=== PATIENT | female | born 2000 | race Caucasian/White ===

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

== ENCOUNTER → 2019-03-27 16:39 | Observation (INO) ==
--- NOTE | 2019-03-27 16:30 | Discharge Summary ---
Date of Encounter: 03/27/19 Time of Encounter: 16:29 - Discharge Diagnosis (1) 38 weeks gestation of Priority: Primary Status: Acute Comments: Admit to observation for patient complaint of possible SROM (2) NST (non-stress test) reactive Priority: Secondary Status: Acute Comments: FHR 145 bpm, moderate variability, +15x15 accels, no decels. (3) False labor Priority: Secondary Status: Acute Comments: Patient without cervical change since appointment early this AM FERN negative Vaginosis panel pending (4) Vaginal discharge during in third trimester Priority: Secondary Status: Acute Comments: Vaginosis panel collected and pending at time of note. FERN and nitrazine negative - Discharge Medications Prescriptions: No Action Pnv Cmb#21/Iron/Folic Acid [ Complete Caplet] 1 each PO DAILY Home Medications: Pnv Cmb#21/Iron/Folic Acid [ Complete Caplet] 1 each PO DAILY 03/27/19 [History] Allergies/Adverse Reactions: Allergy/AdvReac Type Severity Reaction Status Date / Time sulfamethoxazole Allergy Seizure Verified 03/27/19 15:34 [From Bactrim] trimethoprim [From Bactrim] Allergy Seizure Verified 03/27/19 15:34 Date of admission: 03/27/19 15:13 Primary care physician: PCP NONE Discharging clinician: Lanette Waldrop Anticipated date of discharge: 03/27/19 - Patient Status Disposition: Home, Self-Care Condition: Good Functional capacity at discharge: independent ambulation Overall status at discharge: patient is progressing back to baseline - Discharge Instructions Follow Up With: NONE,PCP [Primary Care Provider] - Wendie Cotto MD [Partnered Physician] - - Diet and Activity Activity: resume usual activities as tolerated Diet: regular diet 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 On further questioning, she states that she has been leaking fluid since Monday. She reports positive movement and denies vaginal bleeding. Nitrazine and FERN were both negative, no obvious fluid visualized in vaginal vault. Small amount of adherent white discharge on vaginal miranda so vaginosis panel collected and sent to lab. Cervix without change at FT/thick/high and posterior. Patient is to follow up with her OB care provider as scheduled next week on 9/20/19. Time Attestation: Total time spent providing and/or coordinating discharge services: Time Spent: Less than 30 minutes Exam - Constitutional General appearance IM: A&O X 3, pleasant, no acute distress, answers questions appropriately - Respiratory Respiratory exam: Present: CTAB. Absent: respiratory distress - Cardiovascular Cardiovascular exam IM: Present: RRR, +S1, +S2. Absent: irregular rhythm - GI/Abdominal GI/Abdominal exam IM: normal bowel sounds, soft - Rectal Rectal exam: deferred - External exam: normal external exam - Extremities Exam Extremities exam IM: Present: full ROM, normal capillary refill, normal inspection. Absent: calf tenderness - Neurological Exam Neurological exam: alert, normal gait, oriented X3 - VTE Reasons for not Prescribing Prophylaxis: Treatment not Indicated - Low risk for VTE
[~2019-03-27 16:39] MED LIST: FLU Vac QV 19-20 (6Month+)/PF 0.5 ML SYRINGE IM ONE
[2019-03-27 17:16] LABS: Amphetamine Screen,Urine Negative ng/mL (Cutoff=1000); Barbiturate Screen,Urine Negative ng/mL (Cutoff=200); Benzodiazepines Screen,Urine Negative ng/mL (Cutoff=200); Cannabinoid Screen,Urine Negative ng/mL (Cutoff = 50); Cocaine Screen,Urine Negative ng/mL (Cutoff= 300); Opiate Screen,Urine Negative ng/mL (Cutoff=300); Phencyclidine Screen,Urine Negative ng/mL (Cutoff=25)
[2019-03-27 17:57] LABS: Candida DNA Not Detected (Not Detect); Gardnerella DNA Not Detected (Not Detect); Trichomonas DNA Not Detected (Not Detect)
== END | disposition home or self-care (01) ==
LOC: 1NENULAB
PROVIDERS: ADMIT Registered Nurse; ATTEND Registered Nurse

== ENCOUNTER 2019-04-11 08:00 | Inpatient (IN) ==
[2019-04-11] MEDS ORDERED: Naloxone 0.4 MG/ML INJ IVP PRN (08:27)
[2019-04-11] MEDS ORDERED: Ondansetron 4 MG/2 ML VIAL IVP PRN (08:27)
[2019-04-11] MEDS ORDERED: Famotidine 20 MG/2 ML VIAL IVP PRN (08:27)
[2019-04-11] MEDS ORDERED: Metoclopramide 10 MG/2 ML VIAL IVP PRN (08:27)
[2019-04-11] MEDS ORDERED: Lidocaine 1% 20 ML MDV ID PRN (08:27)
[2019-04-11] MEDS ORDERED: *HR* Nalbuphine 10 MG/ML AMPUL IVP PRN (08:27)
[2019-04-11] MEDS ORDERED: D5% in Lactated Ringers 1,000 ML IVC SCH (08:30)
[2019-04-11] MEDS ORDERED: Ringers Solution, Lactated 1,000 ML IVC SCH (08:30)
[2019-04-11] MEDS ORDERED: Methylergonovine 0.2 MG/ML AMPUL IM ONE (08:55)
[2019-04-11 09:08] LABS: Basophils % 0.3 %; Eosinophils # 0.1 K/mcL (0.0-0.6); Eosinophils % 1.6 %; Hematocrit 36.4 % (35.3-44.9); Hemoglobin 12.1 g/dL (11.5-15.4); Immature Granulocytes % 1.3 % (0-4); Lymphocytes # 1.8 K/mcL (0.6-4.6); Lymphocytes % 23.4 %; Mean Corpuscular HGB Conc 33.2 g/dL (31.6-35.5); Mean Corpuscular Hemoglobin 31.4 pg (28.0-33.3); Mean Corpuscular Volume 94.5 fL (83.0-100.0); Mean Platelet Volume 9.4 fL (9.4-12.4); Monocytes # 0.6 K/mcL (0.0-1.3); Monocytes % 7.6 %; Platelet Count 236 K/mcL (140-400); Red Blood Count 3.85 M/mcL (3.82-4.97); Red Cell Distribution Width 13.6 % (11.5-14.5); Segmented Neutrophils % 65.8 %; White Blood Count 7.7 K/mcL (4.3-11.1)
[2019-04-11] MEDS ORDERED: miSOPROStol 25 MCG TABLET VG PRN (09:29)
[2019-04-11 09:49] LABS: Amphetamine Screen,Urine Negative ng/mL (Cutoff=1000); Barbiturate Screen,Urine Negative ng/mL (Cutoff=200); Benzodiazepines Screen,Urine Negative ng/mL (Cutoff=200); Cannabinoid Screen,Urine Negative ng/mL (Cutoff = 50); Cocaine Screen,Urine Negative ng/mL (Cutoff= 300); Opiate Screen,Urine Negative ng/mL (Cutoff=300); Phencyclidine Screen,Urine Negative ng/mL (Cutoff=25)
--- NOTE | 2019-04-11 11:09 | OB Labor Progress Note ---
Date of Encounter: 04/11/19 Time of Encounter: 11:06 Labor Progress Note - Subjective Subjective: not feeling contractions - Cervix Cervix: 1/75/-2 - Heart Tones Heart Tones: 135/moderate/+accels/-decels - Loyalhanna Loyalhanna: 6-9 - Interventions Interventions: 60cc cervical yuan and cytotec placed - Plan Plan: frequent repostioning nubain and epidural as desired
[2019-04-11] MEDS ORDERED: Penicillin G Potassium 5,000,000 UNIT in 0.9 % Sodium Chloride Mini Bag 100 ML IVPB ONE (11:19)
--- NOTE | 2019-04-11 12:23 | Anesthesia Evaluation PreOp ---
Date of Encounter: 04/11/19 Time of Encounter: 12:17 - Past History Planned Operation: branden Cardiac History: Denies any Significant Hx Pulmonary History: Denies Any Significant HX SEATING CAPTAIN History: Denies Any Significant HX Other Medical History: Denies Any Significant HX Anesthesia History: No Prior Anesthetic Complications, Past Anesthesia : Yes (40weeks, G1) Alcohol Use: none Drug use: none Medications and Allergies Pnv Cmb#21/Iron/Folic Acid [ Complete Caplet] 1 each PO DAILY 03/27/19 [History] Allergy/AdvReac Type Severity Reaction Status Date / Time sulfamethoxazole Allergy Seizure Verified 03/27/19 15:34 [From Bactrim] trimethoprim [From Bactrim] Allergy Seizure Verified 03/27/19 15:34 - Meds/Allergy Pre-op Review Medications Reviewed: Yes Allergies Reviewed: Yes Beta Blockers on Current Med List: No Anesthesia Results - Labs 04/11/19 08:20 Anesthesia Exam O2 Sat Height 1.55 m Height 1.55 m Weight 69.354 kg Weight 69.5 kg Height: 61 Weight: 69 - HEENT Pupil (Motor): Pupils equal Mallampati: II Teeth: Normal Oral Opening: Greater than 3 - SEATING CAPTAIN LOC: Oriented SEATING CAPTAIN Motor: Normal RUE, Normal LUE, Normal RLE, Normal LLE, Normal Face SEATING CAPTAIN Sensory: Normal: RUE, LUE, RLE, LLE, Face - Cardiac Rhythm: Regular Murmur: None JVD: No Carotid Bruit: No - Pulmonary Breath Sounds: bilateral Clear Respiratory Effort: Symmetrical Anesthesia Assess/Plan ASA Score: 2 Level of consciousness: Cooperative Anesthetic Plan: Epidural Monitoring Plan: Standard Monitors
[2019-04-11] MEDS ORDERED: EPHEDrine 50 MG/ML VIAL IVP PRN (12:25)
[2019-04-11] MEDS ORDERED: Epidural Premix (fent/bupiv) 110 ML EP SCH (12:30)
--- NOTE | 2019-04-11 12:49 | OB/GYN History & Physical ---
Date of Encounter: 04/11/19 Time of Encounter: 12:46 Assessment and Plan (1) 40 weeks gestation of Current visit: Yes Status: Acute History of Present Illness Chief complaint: induction HPI: Ms. Jacinto is a 19 year old female 1 at 40 weeks and 2 days, scheduled for induction of labor. On exam her cervix is 1 cm a 60 mL Maguire was placed she has allergies to sulfa, Bactrim and trimethoprim. Current medications include vitamins. She has no chronic medical conditions. Surgical history is significant for excision of vulvar lesion 2. She has no history of abnormal Pap smears, STDs or pelvic infections. Socially she denies tobacco, alcohol, illicit drug use. Family history significant for hypertension, heart disease. Diabetes and bipolar disorder. Past Med Surg Social Fam HX - Past Medical History Medical history: no medical history Psychiatric history: anxiety, ADHD, bipolar, depression, prior suicide attempt - Past Surgical History Surgical History: no surgical history - Social History Smoking Status: Former smoker Smokeless Tobacco Status: No Alcohol use: none Drug use: none - Family History Mother Living Status: Still Living Hx Family Cardiac Disorders: Yes (CABG) Hx Family Respiratory Disorders: No Hx Family Cancer: No Hx Family GI Disorders: No Hx Family Genitourinary Disorders: No Hx Family Endocrine Disorder: No Hx Family Musculoskeletal Disorders: No Hx Family Neuromuscular Disorders: No Hx Family Neurologic Disorders: No Hx Family HEENT Disorders: No Hx Family Autoimmune Disorders: No Hx Family Reproductive Disorders: No Hx Family Psychosocial Disorders: No Hx Family Medical Disorders: No Obstetrical History - Pregnancies : 1 Medications and Allergies Pnv Cmb#21/Iron/Folic Acid [ Complete Caplet] 1 each PO DAILY 03/27/19 [History] Allergy/AdvReac Type Severity Reaction Status Date / Time sulfamethoxazole Allergy Seizure Verified 03/27/19 15:34 [From Bactrim] trimethoprim [From Bactrim] Allergy Seizure Verified 03/27/19 15:34 Review of System OB All systems PM: reviewed and no additional remarkable complaints except as stated Exam - Constitutional Constitutional: well developed, well nourished, no acute distress, average body habitus - HEENT HEENT: EOMI, PERRL, Normocephaly - Neck Neck exam: full ROM - Lungs Respiratory exam: CTAB - Cardiovascular Cardiovascular exam: RRR - Abdomen Abdomen: Present: bowel sounds normal, gravid, non tender - Extremities Extremities exam: full ROM, normal capillary refill - Vagina Vagina: Present: normal moisture - Cervix Dilation: 1 Effacement: 50 Station: -2 - Uterus Uterus exam: Present: normal size Results Result Diagrams: 04/11/19 08:20 All other labs normal. - VTE Reasons for not Prescribing Prophylaxis: Treatment not Indicated - Low risk for VTE
[2019-04-11] MEDS ORDERED: Ropivacaine/PF 0.2% 20 ML VIAL ONE (14:13)
[2019-04-11] MEDS ORDERED: *HR* FentaNYL (PF) 100 MCG/2 ML VIAL ONE (14:13)
--- NOTE | 2019-04-11 14:46 | Anesthesia Procedures ---
Date of Encounter: 04/11/19 Time of Encounter: 14:20 ([id number]) Procedures: Anesthesia - Epidural/Spinal Patient ID/Chart reviewed: Yes Patient examined: Yes OB Eval: Contractions: Non-stressed pattern Consent Obtained: Yes Supplemental Oxygen: None/Room Air Site Prep: Aseptic Technique Patient position: upright Local Anesthetic: Lidocaine 1% Amount of Local Anesthetic used: 2 Touhy Needle Gauge: 18 Touhy Needle Depth (cm): 4 Catheter Depth at Skin (cm): 10 Test Dose (1.5% Lido + Epi): Volume given (mls): 3 Test Dose Result: Negative Loading Dose: Fentanyl (mcg): 100 Loading Dose: Other: 5cc 0.2% ropivicaine Loading Dose Administered: Thru Touhy Needle Infusion Med: 0.125% Bupivacaine w/ 2 mcg/ml Fentanyl Infusion Rate (mls/hr): [address]: Tegaderm Interspace Used: L4-L5 Loss of Resistance (DAVIDSON): Yes Blood: No CSF: No Paresthesia: No Procedure: Strict asepsis, one attempt without any redirections. No parasthesias, no heme, no CSF. FHR unchanged.
[2019-04-11] MEDS: Penicillin G Potassium 2,500,000 UNIT in 0.9 % Sodium Chloride 100 ML IVPB SCH ×2 (15:38→19:42)
[2019-04-11] MEDS ORDERED: Oxytocin 20 units/ LR 1000 mL 20 UNIT/1,000 ML BAG IVC SCH (19:15)
--- NOTE | 2019-04-11 22:07 | Event Note ---
Date of Encounter: 04/11/19 Time of Encounter: 22:06 Cervical check performed. Cervix 7 cm 90% effaced and +1 station. Contractions continued irregular. Pitocin will be started. Category 1 tracing noted.
--- NOTE | 2019-04-11 23:43 | OB/GYN Procedure Note ---
Delivery - Delivery Date: 04/11/19 Provider: Erick Reyes Intrapartum events: none Delivery induction: yuan, misoprostol Delivery augmentation: rupture of membranes, cytotec Delivery monitor: external FHT, external uterine Anesthesia: epidural Quantitated Blood Loss: 400 - Infant (s) Infant A Delivery Date: 04/11/19 Delivery Time: 23:33 Presentation: vertex Position: OA Route of delivery: Gender: Female Viability: Viable Pounds: 7 Ounces: 0 at 1 minute: 7 at 5 mins: 8 Shoulder Dystocia: not encountered Specimens collected: cord blood Placenta: spontaneous Cord: 3 umbilical vessels - Repair Episiotomy: none Laceration Description: None - Complications Delivery complications: none Delivery comments: This patient progressed rapidly to complete and pushing. She had spontaneous vaginal delivery of a female over an intact perineum. 's head was the perineum easily. The rest of the infant was then delivered easily with 1 push. Infant cried immediately upon delivery. The infant was passed to nursing in attendance. After 1 minute cord was clamped and cut. Cord blood was obtained. The placenta was then delivered spontaneously and intact. There are no cervical, vaginal, periurethral, or perineal lacerations noted. Patient ordered a female infant weight was 7 lbs. 0 oz. Apgars are 7 at 1 minute and 8 at 5 minutes. Estimated blood loss is 400 mL. - Disposition Mom disposition: stable in LDR [place] disposition: stable in LDR
[2019-04-12] MEDS ORDERED: Benzocaine/Menthol 56 GM AEROSOL SPRAY TP PRN (03:00)
[2019-04-12] MEDS ORDERED: Oxytocin 20 units/ LR 1000 mL 20 UNIT/1,000 ML BAG IVC SCH (03:00)
[2019-04-12] MEDS ORDERED: Rho Immune Globulin 1,500 UNIT SYRINGE IM PRN (03:00)
[2019-04-12] MEDS ORDERED: Lanolin 7 G OINT...G. TP PRN (03:00)
[2019-04-12] MEDS ORDERED: Acetaminophen 325 MG TABLET PO PRN (03:00)
[2019-04-12] MEDS: Ibuprofen 600 MG TABLET PO PRN ×2 (05:42→22:57)
[2019-04-12] MEDS: Prenatal Vit/FA 1 EACH TABLET PO SCH (10:07)
--- NOTE | 2019-04-12 13:15 | OB/GYN Progress Note ---
Date of Encounter: 04/12/19 Time of Encounter: 13:13 - Assessment and Plan (1) Vaginal delivery Current Visit: Yes Status: Acute Meeting day 1 milestones Continue routine care Despite discharge home tomorrow Subjective - Subjective Principal diagnosis: s/p Interval history: Feeling well. Out of bed without dizziness. Some perineal discomfort-using ice pack. Cramping minimal, using ibuprofen. Bottlefeeding every 2-3 hours. Some nipple soreness. Voiding without difficulty. Passing flatus, no BM yet. Tolerating regular diet. Patient reports: appetite normal, voiding normally, pain well controlled, ambulating normally : doing well, bottle feeding Objective - Latest Vital Signs Latest vital signs: Vital Signs Temp Pulse Resp BP Pulse Ox 04/12/19 08:05 97.9 F 83 16 93/62 94 04/12/19 05:00 97.9 F 80 14 115/66 97 04/12/19 04:00 98.1 F 83 14 112/73 96 04/12/19 03:00 97.9 F 78 14 110/68 96 Intake and Output 04/11/19 04/12/19 04/12/19 23:59 07:59 15:59 Intake Total 100 / 100 Output Total 900 / 1300 400 / 1300 Balance 100 / 100 -900 / -1300 -400 / -1300 Intake: IV Fluids 100 / 100 Pfizerpen 2,500,000 UNIT In 0.9 100 / 100 % Sodium Chloride 100 ML @ 100 mls/hr IVPB Q4HR [facility] Rx#: [id number] Output: Urine 900 / 1300 400 / 1300 Other: # Voids 1 - Exam Lungs: bilateral: normal Chest: Normal S1, Normal S2 Extremities: Present: normal Abdomen: Present: normal appearance, soft Uterus: Present: normal, firm Uterus Position: 2 Fingers Below Umbilicus, Midline
[2019-04-13 08:07] VITALS: BP 96/55
[2019-04-13] MEDS: Prenatal Vit/FA 1 EACH TABLET PO SCH (09:23)
--- NOTE | 2019-04-13 09:42 | Discharge Summary ---
Date of Encounter: 04/13/19 Time of Encounter: 09:40 - Discharge Diagnosis (1) Vaginal delivery Priority: Primary Status: Acute Comments: Feeling well Tolerating regular diet Pain well-controlled with by mouth pain meds Ambulating independently Voiding independently Lochia light Passing flatus, no BM yet Vital signs stable Discharge home today - Discharge Medications Prescriptions: New Acetaminophen [Tylenol] 650 mg PO Q6H PRN tablet PRN Reason: Mild Pain Ibuprofen [Motrin] 600 mg PO Q6H PRN #30 tablet PRN Reason: Cramping Benzocaine/Menthol [place] [Dermoplast [place]] 1 appl TP QID PRN aerosol PRN Reason: See Comments Docusate [Colace] 100 mg PO BID #30 capsule Lanolin [Lansinoh] 1 appl TP Q4HR PRN oint...g. PRN Reason: Continued Pnv Cmb#21/Iron/Folic Acid [ Complete [place]] 1 each PO DAILY Home Medications: Pnv Cmb#21/Iron/Folic Acid [ Complete [place]] 1 each PO DAILY 03/27/19 [History] Acetaminophen [Tylenol] 650 mg PO Q6H PRN tablet 04/13/19 [Rx] Benzocaine/Menthol [place] [Dermoplast [place]] 1 appl TP QID PRN aerosol 04/13/19 [Rx] Docusate [Colace] 100 mg PO BID #30 capsule 04/13/19 [Rx] Ibuprofen [Motrin] 600 mg PO Q6H PRN #30 tablet 04/13/19 [Rx] Lanolin [Lansinoh] 1 appl TP Q4HR PRN oint...g. 04/13/19 [Rx] Allergies/Adverse Reactions: Allergy/AdvReac Type Severity Reaction Status Date / Time sulfamethoxazole Allergy Seizure Verified 03/27/19 15:34 [From Bactrim] trimethoprim [From Bactrim] Allergy Seizure Verified 03/27/19 15:34 Data Procedures and tests throughout hospitalization: Laboratory Tests 04/11/19 04/11/19 08:20 08:20 WBC 7.7 RBC 3.85 Hgb 12.1 Hct 36.4 MCV 94.5 MCH 31.4 MCHC 33.2 RDW 13.6 Plt Count 236 MPV 9.4 Immature Gran % 1.3 Seg Neutrophils % 65.8 Lymphocytes % 23.4 Monocytes % 7.6 Eosinophils % 1.6 Basophils % 0.3 Neutrophils # 5.0 Lymphocytes # 1.8 Monocytes # 0.6 Eosinophils # 0.1 Basophils # 0.0 Urine Opiates Screen Negative Ur Buprenorphine Scrn Negative Ur Barbiturates Screen Negative Ur Phencyclidine Scrn Negative Ur Amphetamines Screen Negative U Benzodiazepines Scrn Negative Urine Cocaine Screen Negative U Marijuana (THC) Screen Negative Ur Drug Screen Interp See Below Date of admission: 04/11/19 08:10 Primary care physician: PCP NONE Consults: 04/11/19 08:48 Consult to Financial Advisor Trainee ([employer]) [CONS] Routine Reason For Exam: Reason for SW Consult: high of suicide attempt, history of marijuana use 04/12/19 03:00 Consult to Sheet Metal Fabricator [CONS] Routine Comment: Vaginal delivery, consult needed Discharging clinician: Shira Santos Anticipated date of discharge: 04/13/19 - Patient Status Disposition: Home, Self-Care Condition: Good Functional capacity at discharge: independent ambulation Overall status at discharge: patient is progressing back to baseline - Discharge Instructions Follow Up With: NONE,PCP [Primary Care Provider] - Erick Reyes MD [Partnered Physician] - - Diet and Activity Activity: increase activity as tolerated Diet: regular diet Hospital Course Reason for admission: induction of labor, IUP at term Delivery: Episiotomy: none Laceration: none Other procedures: none complications: none Discharge diagnosis: IUP at term delivered baby: female Time Attestation: Total time spent providing and/or coordinating discharge services: Time Spent: Less than 30 minutes Exam - Constitutional Vitals: Temp Pulse Resp BP Pulse Ox 97.6 F 55 16 96/55 97 04/13/19 08:07 04/13/19 08:07 04/13/19 08:07 04/13/19 08:07 04/13/19 08:07 General appearance IM: A&O X 3, pleasant, no acute distress, answers questions appropriately - Respiratory Respiratory exam: Present: CTAB - Cardiovascular Cardiovascular exam IM: Present: RRR, +S1, +S2 - GI/Abdominal GI/Abdominal exam IM: normal bowel sounds, no peritoneal signs - Rectal Rectal exam: deferred - Uterine Tone: Firm Uterus Position: At Umbilicus, Midline - Extremities Exam Extremities exam IM: Present: full ROM, normal capillary refill, normal inspection, radial pulses palpable and symmetrical - Neurological Exam Neurological exam: alert, CN II-XII intact, normal gait, oriented X3, reflexes normal, no focal deficits, strengths equal and symetr throughout - Psychiatric Additional comments: Patient denies history of anxiety and depression. Signs and symptoms of depression discussed with patient and partner both verbalized understanding of when to seek help.
[2019-04-13] MEDS ORDERED: Etonogestrel 68 MG IMPLANT IL ONE (10:48)
[2019-04-13] MEDS ORDERED: Lidocaine -MPF 1% 5 ML AMPUL ID ONE (10:48)
--- NOTE | 2019-04-13 11:49 | OB/GYN Procedure Note ---
OB-CLAIM TRAINEE: Procedure - Diagnosis Date of procedure: 04/13/19 Pre-op diagnosis: contraceptive education Post-op diagnosis: same - Procedure Procedure: Nexplanon insertion Surgeon: Nicki Segovia Was there an food and nutrition services assistant present: No Anesthesia Type: Local Estimated blood loss (cc): 1 Procedure Complications: none Specimens collected: none Disposition: no change Narrative: Pt requesting Nexplanon for contraception. Education provided about risks and benefits and possible side effects. She verbalized understanding. Consent signed. Pt positioned supine with left arm abducted and flexed. The inner aspect of the upper left arm was cleansed with betadine solution and lidocaine 1% was instilled subdermally. The implant was then inserted to the full length and the device was deployed. The implant was palpated by the patient and myself. A pressure dressing was applied. Pt tolerated procedure well. Education was given on site care.
== END 2019-04-13 12:00 | disposition home or self-care (01) | DRG 560 ==
LOC: 1NENULAB 08:10 → 1NENUOBS 04-12 04:13
PROVIDERS: ADMIT Obstetrics & Gynecology; ATTEND Obstetrics & Gynecology

== ENCOUNTER 2020-12-18 07:50 | Inpatient (IN) ==
[2020-12-18] MEDS ORDERED: Ondansetron 4 MG/2 ML VIAL IVP ONE (08:52)
[2020-12-18] MEDS ORDERED: Nicotine 14 MG PATCH.TD24 TD PRN (14:05)
[2020-12-18] MEDS ORDERED: haloperidoL 5 MG TABLET PO PRN (14:05)
[2020-12-18] MEDS ORDERED: Haloperidol Lactate 5 MG/ML VIAL IM PRN (14:05)
[2020-12-18] MEDS ORDERED: *HR* LORazepam 1 MG TABLET PO PRN (14:05)
[2020-12-18] MEDS ORDERED: *HR* LORazepam 2 MG/ML VIAL IM PRN (14:05)
[2020-12-18] MEDS ORDERED: hydrOXYzine pamoate 25 MG CAPSULE PO PRN (14:05)
[2020-12-19] MEDS: NORETHINDRONE AC ETH ESTRADIOL PO SCH (14:41)
[2020-12-19] MEDS: traZODone 50 MG TABLET PO PRN (21:06)
[2020-12-20] MEDS: NORETHINDRONE AC ETH ESTRADIOL PO SCH (09:50)
[2020-12-20] MEDS: traZODone 50 MG TABLET PO PRN (20:39)
[2020-12-20] MEDS ORDERED: NORETHINDRONE AC ETH ESTRADIOL PO SCH (21:00)
[2020-12-21 08:19] VITALS: BP 107/69
[2020-12-21] MEDS ORDERED: NORETHINDRONE AC ETH ESTRADIOL PO SCH (21:00)
== END 2020-12-21 14:55 | disposition home or self-care (01) | DRG 817 ==
LOC: EMEROOARM 07:50 → 1ANU 14:02
PROVIDERS: ADMIT Psychiatry & Neurology Forensic Psychiatry; ATTEND Psychiatry & Neurology Forensic Psychiatry